=== PATIENT | male | born 1955 | race Caucasian/White ===

== ENCOUNTER 2019-06-23 13:41 | Inpatient (IN) | payer OTHER ==
[2019-06-22 09:51] LABS: BASOPHILS # (AUTO) 0.03 x10^3/uL (0-0.1); BASOPHILS % (AUTO) 1 % (0-1); EOSINOPHILS # (AUTO) 0.07 x10^3/uL (0-0.4); EOSINOPHILS % (AUTO) 1 % (1-7); LYMPHOCYTES # (AUTO) 1.48 x10^3/uL (1-3.4); LYMPHOCYTES % (AUTO) 24 % (22-44); MD NO; MEAN CORPUSCULAR HEMOGLOBIN 34.5 pg (27.5-34.5); MEAN CORPUSCULAR HGB CONC 34.2 g/dL (33.2-36.2); MEAN CORPUSCULAR VOLUME 100.9 fL (81-97); MEAN PLATELET VOLUME 6.6 fL (7.4-10.4); MONOCYTES # (AUTO) 0.65 x10^3/uL (0.2-0.8); MONOCYTES % (AUTO) 10 % (2-9); NEUTROPHILS # (AUTO) 3.98 x10^3/uL (1.8-6.8); NEUTROPHILS % (AUTO) 64 % (42-75); PLATELET COUNT 295 x10^3/uL (130-400); RED BLOOD COUNT 4.61 x10^6/uL (4.38-5.82); RED CELL DISTRIBUTION WIDTH 12.3 % (9.4-14.8)
[2019-06-22 09:56] LABS: INTERNATIONAL NORMALIZED RATIO 0.96 (0.93-1.1); PROTHROMBIN TIME 10.1 Seconds (9.6-11.5)
[2019-06-22 09:58] LABS: ALANINE AMINOTRANSFERASE 24 U/L (12-78); ALBUMIN 3.9 g/dL (3.4-5.0); CALCIUM 9.2 mg/dL (8.5-10.1); CREATININE 1.03 mg/dL (0.7-1.3)
[2019-06-22 10:07] LABS: ALKALINE PHOSPHATASE 63 U/L (45-117); ANION GAP 5 mmol/L (5-15); BILIRUBIN,TOTAL 0.4 mg/dL (0.2-1.0); CHLORIDE 106 mmol/L (98-107); TOTAL PROTEIN 7.6 g/dL (6.4-8.2)
[~2019-06-23] VITALS: Ht 172.7 cm; Wt 92.0 kg
[~2019-06-23 13:41] MED LIST: CEFAZOLIN 1,000 MG ONE; DABI75CA3 PO; DEXAMETHASONE 4 MG/ML, 1ML ONE; EZET10TA70 PO; GABA300C10 PO; ONDANSETRON 2MG/ML, 2ML ONE; ROCURONIUM 10MG/ML,5ML ONE; SUCCINYLCHOLINE 20 MG/ML, 10ML ONE; VALS1TAB28 PO; testosterone TP
[2019-06-23] MEDS ORDERED: LACTATED RINGERS 1,000 ML IV SCH (14:47)
[2019-06-23] MEDS ORDERED: VANCOMYCIN 1,400 MG in SODIUM CHLORIDE 0.9% 250 ML IVPB ONE (15:00)
[2019-06-23] MEDS ORDERED: THROMBIN 5,000 UNIT VIAL TP ONE (15:01)
[2019-06-23] MEDS ORDERED: HEPARIN 1,000 UNITS/ML, 10ML ONE (15:01)
[2019-06-23] MEDS ORDERED: PAPAVERINE 30 MG/ML, 2ML ONE (15:01)
[2019-06-23] MEDS ORDERED: PROTAMINE SULFATE 10 MG/ML, 5ML ONE (15:11)
[2019-06-23] MEDS ORDERED: MIDAZOLAM 1 MG/ML, 2ML ONE (15:34)
[2019-06-23] MEDS ORDERED: PROPOFOL 50 ML ONE (15:34)
[2019-06-23] MEDS ORDERED: FENTANYL PF 250 MCG/5ML ONE (15:34)
[2019-06-23] MEDS ORDERED: BUPIVACAINE/EPI 0.5% 1:200K ONE (17:22)
[2019-06-23] MEDS ORDERED: MIDAZOLAM 1 MG/ML, 2ML IV PRN (17:30)
[2019-06-23] MEDS ORDERED: hydrALAzine 20 MG/ML, 1ML IV PRN ×2 (17:30→19:30)
[2019-06-23] MEDS ORDERED: ALBUTEROL/IPRATROPIUM 2.5MG/0.5MG, 3 ML NPPB PRN (17:30)
[2019-06-23] MEDS ORDERED: OXYcodone 5 MG/5 ML ORAL.SOL UDC PO PRN (17:30)
[2019-06-23] MEDS ORDERED: MEPERIDINE/PF 25MG/ML,1ML IVPush PRN (17:30)
[2019-06-23] MEDS ORDERED: HYDROmorphone 2 MG/ML, 1ML IVPush PRN (17:30)
[2019-06-23] MEDS ORDERED: ACETAMINOPHEN 325 MG TABLET PO PRN ×2 (17:30→19:30)
[2019-06-23] MEDS ORDERED: PROMETHAZINE 25 MG/ML, 1ML IV PRN (17:30)
[2019-06-23] MEDS ORDERED: METOPROLOL 1 MG/ML, 5ML IV PRN (17:30)
[2019-06-23] MEDS ORDERED: OXYcodone 5 MG/5 ML ORAL.SOL UDC ONE (18:03)
[2019-06-23] MEDS ORDERED: FENTANYL PF 100 MCG/2ML ONE (18:03)
[2019-06-23] MEDS: FENTANYL PF 100 MCG/2ML IV PRN ×3 (18:05→18:19)
[2019-06-23 19:00] VITALS: BP 122/71
[2019-06-23] MEDS ORDERED: morphine SULFATE 10 MG/ML, 1ML IV PRN (19:30)
[2019-06-23] MEDS ORDERED: HYDROcodone/APAP 5/325 TABLET PO PRN (19:30)
[2019-06-23] MEDS: GABAPENTIN 100 MG CAPSULE PO SCH (22:02)
[2019-06-23] MEDS: LACTATED RINGERS 1,000 ML IV SCH (22:04)
[2019-06-23] MEDS: SODIUM CHLORIDE FLUSH 10ML SYR IVF SCH (22:04)
[2019-06-23 23:52] VITALS: BP 99/65
[2019-06-24] MEDS ORDERED: VANCOMYCIN 1,400 MG in SODIUM CHLORIDE 0.9% 250 ML IV ONE (03:00)
[2019-06-24 04:06] VITALS: BP 98/64
[2019-06-24 04:56] LABS: BASOPHILS % (AUTO) 0 % (0-1); EOSINOPHILS % (AUTO) 0 % (1-7); LYMPHOCYTES # (AUTO) 0.59 x10^3/uL (1-3.4); LYMPHOCYTES % (AUTO) 7 % (22-44); MD NO; MEAN CORPUSCULAR HEMOGLOBIN 34.6 pg (27.5-34.5); MEAN CORPUSCULAR HGB CONC 33.9 g/dL (33.2-36.2); MEAN CORPUSCULAR VOLUME 102.1 fL (81-97); MONOCYTES # (AUTO) 0.32 x10^3/uL (0.2-0.8); MONOCYTES % (AUTO) 4 % (2-9); NEUTROPHILS % (AUTO) 89 % (42-75); PLATELET COUNT 252 x10^3/uL (130-400); RED BLOOD COUNT 3.99 x10^6/uL (4.38-5.82); RED CELL DISTRIBUTION WIDTH 12.6 % (9.4-14.8)
[2019-06-24 05:01] LABS: ALBUMIN 2.8 g/dL (3.4-5.0); ANION GAP 3 mmol/L (5-15); CALCIUM 8.4 mg/dL (8.5-10.1); CHLORIDE 112 mmol/L (98-107); CREATININE 1.02 mg/dL (0.7-1.3)
[2019-06-24] MEDS: ASPIRIN 325 MG TABLET EC PO SCH (06:46)
[2019-06-24] MEDS: ENOXAPARIN 40 MG/0.4 ML SQ SCH (06:47)
[2019-06-24] MEDS: SODIUM CHLORIDE FLUSH 10ML SYR IVF SCH ×2 (08:00→09:42)
[2019-06-24] MEDS: LACTATED RINGERS 1,000 ML IV SCH ×2 (08:00→20:50)
[2019-06-24 08:56] VITALS: BP 119/73
[2019-06-24] MEDS: HYDROCHLOROTHIAZIDE 12.5 MG CAPSULE PO SCH (09:40)
[2019-06-24] MEDS: VALSARTAN 160 MG TABLET PO SCH (09:40)
[2019-06-24] MEDS: EZETIMIBE 10 MG TABLET PO SCH (09:40)
[2019-06-24] MEDS: GABAPENTIN 100 MG CAPSULE PO SCH ×2 (09:41→20:49)
[2019-06-24 12:26] VITALS: BP 129/74
[2019-06-24] MEDS ORDERED: FLU VACC QS2019-20 36MOS UP/PF 0.5 ML IM-VACC ONE (16:00)
[2019-06-24] MEDS ORDERED: IBUPROFEN 600 MG TABLET ONE (18:28)
[2019-06-24] MEDS ORDERED: CALCIUM CARBONATE 500 MG TAB.CHEW ONE (18:28)
[2019-06-24] MEDS ORDERED: IBUPROFEN 600 MG TABLET PO PRN (18:30)
[2019-06-24] MEDS ORDERED: CALCIUM CARBONATE 500 MG TAB.CHEW PO PRN (18:30)
[2019-06-24 19:11] VITALS: BP 118/70
[2019-06-25 01:38] VITALS: BP 122/78
[2019-06-25] MEDS: LACTATED RINGERS 1,000 ML IV SCH (04:00)
[2019-06-25] MEDS: ASPIRIN 325 MG TABLET EC PO SCH (07:04)
[2019-06-25] MEDS: ENOXAPARIN 40 MG/0.4 ML SQ SCH (07:05)
[2019-06-25 07:33] VITALS: BP 124/73
[2019-06-25] MEDS: GABAPENTIN 100 MG CAPSULE PO SCH (07:58)
[2019-06-25] MEDS: HYDROCHLOROTHIAZIDE 12.5 MG CAPSULE PO SCH (07:58)
[2019-06-25] MEDS: EZETIMIBE 10 MG TABLET PO SCH (07:58)
[2019-06-25] MEDS: VALSARTAN 160 MG TABLET PO SCH (07:58)
[2019-06-25] MEDS: SODIUM CHLORIDE FLUSH 10ML SYR IVF SCH (08:02)
[2019-06-25] MEDS ORDERED: TRAM50TA2 PO (08:39)
== END 2019-06-25 09:21 | disposition home or self-care (01) | DRG 253 ==
LOC: ORIP 13:41 → EDSTATUS 15:30 → 4NE 18:50 → DCLOUNGE 06-25 09:13
PROVIDERS: ADMIT Surgery; ATTEND Surgery
PROC: 04CK0ZZ Extirpation of Matter from Right Femoral Artery, Open Approach (ICD-10-PCS; 2019-06-23)
PROC: 04UK0KZ Supplement Right Femoral Artery with Nonautologous Tissue Substitute, Open Approach (ICD-10-PCS; principal; 2019-06-23 15:30)
DX: T82.858A Stenosis of other vascular prosthetic devices, implants and grafts, initial encounter (principal); E44.0 Moderate protein-calorie malnutrition; E78.5 Hyperlipidemia, unspecified; G89.29 Other chronic pain; I10 Essential (primary) hypertension; M54.5 Low back pain; E78.2 Mixed hyperlipidemia; I73.9 Peripheral vascular disease, unspecified; Y83.2 Surgical operation with anastomosis, bypass or graft as the cause of abnormal reaction of the patient, or of later complication, without mention of misadventure at the time of the procedure; Z87.891 Personal history of nicotine dependence; Z88.0 Allergy status to penicillin; Z88.2 Allergy status to sulfonamides; Z79.01 Long term (current) use of anticoagulants; Y92.098 Other place in other non-institutional residence as the place of occurrence of the external cause; Z88.1 Allergy status to other antibiotic agents; Z23 Encounter for immunization
CPT/HCPCS: 36415; 80048; 80053; 82040; 85025; 85610; 90686; 93005; G0378; J0690; J1100; J1644; J1650; J2250; J2405; J2704; J2720; J3010; J3370; C1760; C1768; J0330; J2440; J7050; J7120

== ENCOUNTER 2019-07-29 08:39 | Outpatient (CLI) | payer OTHER ==
[~2019-07-29 08:39] MED LIST changes: -CEFAZOLIN 1,000 MG ONE; -DEXAMETHASONE 4 MG/ML, 1ML ONE; -ONDANSETRON 2MG/ML, 2ML ONE; -ROCURONIUM 10MG/ML,5ML ONE; -SUCCINYLCHOLINE 20 MG/ML, 10ML ONE; +TRAM50TA2 PO
[2019-07-29] MEDS ORDERED: VALS1TAB26 PO (09:10)
[2019-07-29] MEDS ORDERED: ALIR75PE INJ (09:10)
[2019-07-29] MEDS ORDERED: ASPI-496 PO (09:10)
[2019-07-29] MEDS ORDERED: GABA100C PO (09:10)
== END 2019-07-29 23:59 | disposition home or self-care (01) ==
LOC: STAR 08:39
PROVIDERS: ATTEND Surgery
DX: Z02.9 Encounter for administrative examinations, unspecified (principal)

== ENCOUNTER 2019-08-02 12:10 | Day surgery (SDC) | payer OTHER ==
[~2019-08-02] VITALS: Ht 172.7 cm; Wt 94.3 kg
[~2019-08-02 12:10] MED LIST changes: +ALIR75PE INJ; +ASPI-496 PO; +GABA100C PO; +VALS1TAB26 PO; +VISIPAQUE 270 MG/ML, 50ML BOTTLE ONE
[2019-08-02] MEDS ORDERED: SODIUM CHLORIDE 0.9% 1,000 ML IV SCH (12:35)
[2019-08-02] MEDS ORDERED: CEFAZOLIN 2,000 MG in SODIUM CHLORIDE 0.9% 50 ML IV ONE (13:00)
[2019-08-02 13:07] VITALS: BP 146/81
[2019-08-02] MEDS ORDERED: FLUMAZENIL 0.1 MG/1 ML, 5ML ONE (13:48)
[2019-08-02] MEDS ORDERED: MIDAZOLAM 1 MG/ML, 5ML ONE (13:48)
[2019-08-02] MEDS ORDERED: FENTANYL PF 100 MCG/2ML ONE (13:48)
[2019-08-02] MEDS ORDERED: NALOXONE 1 MG/ML, 2ML ONE (13:49)
[2019-08-02] MEDS ORDERED: PROTAMINE SULFATE 10 MG/ML, 25ML ONE (13:49)
[2019-08-02] MEDS ORDERED: HEPARIN 1,000 UNITS/ML, 10ML ONE (13:49)
[2019-08-02] MEDS ORDERED: LIDOCAINE 1%, 10ML ONE (13:49)
== END 2019-08-02 17:10 | disposition home or self-care (01) ==
LOC: OUT 12:10
PROVIDERS: ATTEND Surgery
DX: I70.712 Atherosclerosis of other type of bypass graft(s) of the extremities with intermittent claudication, left leg (principal); I10 Essential (primary) hypertension; E78.5 Hyperlipidemia, unspecified; G89.29 Other chronic pain; M54.9 Dorsalgia, unspecified; Z88.0 Allergy status to penicillin; Z88.2 Allergy status to sulfonamides; Z88.1 Allergy status to other antibiotic agents; Z88.8 Allergy status to other drugs, medicaments and biological substances
CPT/HCPCS: 36200; 75625; 75716; 99156; 99157; C1751; C1769; C1894; J0690; J2250; J3010; J7030; Q9966; 75710; J1644; J2720; J2310

== ENCOUNTER → 2020-03-15 | Outpatient (CLI) | payer OTHER ==
[~2020-03-15] MED LIST changes: -VALS1TAB28 PO; +VALS1TAB29 PO; -VISIPAQUE 270 MG/ML, 50ML BOTTLE ONE
== END | disposition home or self-care (01) ==
LOC: CVU 06:37
PROVIDERS: ATTEND Surgery
DX: I71.4 Abdominal aortic aneurysm, without rupture (principal); I70.293 Other atherosclerosis of native arteries of extremities, bilateral legs; I74.5 Embolism and thrombosis of iliac artery; I74.3 Embolism and thrombosis of arteries of the lower extremities; I10 Essential (primary) hypertension; E78.5 Hyperlipidemia, unspecified; F17.290 Nicotine dependence, other tobacco product, uncomplicated
CPT/HCPCS: 93922; 93925; 93978

== ENCOUNTER → 2020-11-17 | Outpatient (CLI) | payer OTHER | END | disposition home or self-care (01) | LOC: CVU 12:42 | PROVIDERS: ATTEND Surgery | DX: I73.9 Peripheral vascular disease, unspecified (principal); I71.4 Abdominal aortic aneurysm, without rupture | CPT/HCPCS: 93922; 93925; 93978 ==